=== PATIENT | male | born 1975 | race Caucasian/White ===

== ENCOUNTER 2022-05-29 07:20 | Emergency (ER) | payer SELFPAY ==
[~2022-05-29] VITALS: Ht 167.6 cm; Wt 70.0 kg
[2022-05-29] MEDS ORDERED: METRONIDAZOLE500 MG PO (07:41)
[2022-05-29] MEDS ORDERED: BACTRIM DS1 TAB PO (07:41)
[2022-05-29] MEDS ORDERED: ZOFRAN4 MG/TAB PO (07:42)
[2022-05-29 08:23] VITALS: BP 128/88
== END 2022-05-29 09:12 | disposition home or self-care (01) | DRG 605 ==
LOC: ED 07:20
DX: S80.872A Other superficial bite, left lower leg, initial encounter (principal); L03.116 Cellulitis of left lower limb; W54.0XXA Bitten by dog, initial encounter